=== PATIENT | male | born 1960 | race Caucasian/White ===

== ENCOUNTER 2018-04-17 10:46 | Inpatient (IN) ==
[~2018-04-17 10:46] MED LIST: VERAPAMIL 5 MG/2 ML VIAL ONE
[2018-04-17] MEDS ORDERED: diphenhydrAMINE CAP 25 MG CAPSULE PO ONE (11:00)
[2018-04-17] MEDS ORDERED: SODIUM CHLORIDE 0.45% 1,000 ML IV SCH (11:00)
[2018-04-17] MEDS ORDERED: DIAZEPAM 5 MG TABLET PO ONE (11:00)
[2018-04-17] MEDS ORDERED: diphenhydrAMINE CAP 25 MG CAPSULE ONE (11:52)
[2018-04-17] MEDS ORDERED: DIAZEPAM 5 MG TABLET ONE (11:52)
[2018-04-17] MEDS ORDERED: ASPIRIN 325 MG TABLET ONE (11:52)
[2018-04-17] MEDS ORDERED: LIDOCAINE 1% 20 ML VIAL ONE (11:56)
[2018-04-17] MEDS ORDERED: HEPARIN/NACL 0.9% 2 UNITS/ML 1,000 ML IV ONE (11:56)
[2018-04-17] MEDS ORDERED: ASPIRIN 325 MG TABLET PO ONE (11:58)
[2018-04-17] MEDS ORDERED: NITROGLYCERIN DRIP 50 MG/250 ML BOTTLE IV ONE (12:17)
[2018-04-17] MEDS ORDERED: MIDAZOLAM 2 MG/2 ML VIAL ONE ×2 (12:17→12:32)
[2018-04-17] MEDS ORDERED: fentaNYL 100 MCG/2 ML VIAL ONE (12:17)
[2018-04-17] MEDS ORDERED: HEPARIN 5,000 UNIT/1 ML VIAL ONE (12:30)
[2018-04-17] MEDS ORDERED: diphenhydrAMINE 50 MG/1 ML VIAL ONE (12:32)
[2018-04-17] MEDS ORDERED: ONDANSETRON 4 MG/2 ML VIAL IV PRN (12:57)
[2018-04-17] MEDS ORDERED: ZALEPLON 5 MG CAPSULE PO PRN (12:57)
[2018-04-17] MEDS ORDERED: DOCUSATE SODIUM 100 MG CAPSULE PO PRN (12:57)
[2018-04-17] MEDS ORDERED: ACETAMINOPHEN 325 MG TABLET PO PRN (12:57)
[2018-04-17] MEDS ORDERED: hydrALAZINE 25 MG TABLET PO ONE (23:00)
[2018-04-18 06:09] LABS: Basophils # 0.1 10*3/uL (0.0-0.2); Eosinophils # 0.5 10*3/uL (0.0-0.87); Eosinophils % 5.9 % (0.00-10.9); Hematocrit 41.7 VOL% (42.0-52.0); Hemoglobin 14.8 GM/DL (14.0-18.0); Immature Granulocytes Absolute 0.09 #; Lymphocytes # 2.3 10*3/uL (1.4-4.0); Mean Corpuscular HGB Conc 35.5 GM/DL (32-36); Mean Corpuscular Hemoglobin 33 PG (27-34); Mean Corpuscular Volume 92.9 FL (87-102); Mean Platelet Volume 12.1 FL (9.6-12.0); Monocytes % 11.9 % (1.7-12.7); Neutrophils # 4.8 10*3/uL (1.4-7.4); Neutrophils % 54.2 % (38.7-73.9); Platelet Count 181 T/CUMM (130-400); Red Blood Count 4.49 MC/CUMM (3.8-5.5); Red Cell Distribution Width 13.5 % (9.3-17.3); White Blood Count 8.8 T/CUMM (4-12)
[2018-04-18 06:28] LABS: Calcium 8.8 MG/DL (8.5-10.1); Osmolality,Calculated 276.7 MOS/KG (273-304); Potassium 3.7 MMOL/L (3.5-5.1); Risk Ratio 3.84; Thyroid Stimulating Hormone 1.86 uIU/ml (0.358-3.74); VLDL CHOLESTEROL 54.8 MG/DL
[2018-04-18] MEDS ORDERED: ATORVASTATIN 20 MG TABLET PO SCH (09:00)
[2018-04-18] MEDS ORDERED: LISINOPRIL/HCTZ 20-12.5 MG TABLET PO SCH (09:00)
[2018-04-18] MEDS: CARVEDILOL 3.125 MG TABLET PO SCH ×2 (09:39→16:37)
[2018-04-18] MEDS: LISINOPRIL 20 MG TABLET PO SCH (09:39)
[2018-04-18] MEDS: PANTOPRAZOLE 40 MG TABLET PO SCH (09:39)
[2018-04-18] MEDS: ASPIRIN EC 81 MG TABLET PO SCH (09:39)
[2018-04-18] MEDS: ATORVASTATIN 80 MG TABLET PO SCH (09:39)
[2018-04-18] MEDS: hydrALAZINE 20 MG/1 ML VIAL IV PRN (18:12)
[2018-04-19 06:02] LABS: Basophils # 0.1 10*3/uL (0.0-0.2); Basophils % 0.9 % (0.0-0.8); Eosinophils # 0.5 10*3/uL (0.0-0.87); Eosinophils % 6.4 % (0.00-10.9); Hemoglobin 15.4 GM/DL (14.0-18.0); Immature Granulocytes % 0.9 %; Immature Granulocytes Absolute 0.07 #; Lymphocytes # 2.5 10*3/uL (1.4-4.0); Lymphocytes % 30.3 % (21.2-54.2); Mean Corpuscular HGB Conc 34.2 GM/DL (32-36); Mean Corpuscular Hemoglobin 33 PG (27-34); Mean Corpuscular Volume 94.9 FL (87-102); Mean Platelet Volume 12.2 FL (9.6-12.0); Monocytes # 0.9 10*3/uL (0.11-0.8); Monocytes % 11.5 % (1.7-12.7); Neutrophils # 4.1 10*3/uL (1.4-7.4); Platelet Count 191 T/CUMM (130-400); Red Blood Count 4.74 MC/CUMM (3.8-5.5); Red Cell Distribution Width 13.6 % (9.3-17.3); White Blood Count 8.1 T/CUMM (4-12)
[2018-04-19 06:24] LABS: Calcium 9.4 MG/DL (8.5-10.1); Osmolality,Calculated 282.3 MOS/KG (273-304); Potassium 3.8 MMOL/L (3.5-5.1)
[2018-04-19] MEDS: ATORVASTATIN 80 MG TABLET PO SCH (09:20)
[2018-04-19] MEDS: LISINOPRIL 20 MG TABLET PO SCH (09:20)
[2018-04-19] MEDS: ASPIRIN EC 81 MG TABLET PO SCH (09:20)
[2018-04-19] MEDS: PANTOPRAZOLE 40 MG TABLET PO SCH (09:20)
[2018-04-19] MEDS: CARVEDILOL 3.125 MG TABLET PO SCH ×2 (09:20→16:07)
[2018-04-19] MEDS: amLODIPine 5 MG TABLET PO SCH (18:25)
[2018-04-20] MEDS: amLODIPine 5 MG TABLET PO SCH (08:36)
[2018-04-20] MEDS: ASPIRIN EC 81 MG TABLET PO SCH (08:36)
[2018-04-20] MEDS: CARVEDILOL 3.125 MG TABLET PO SCH ×2 (08:36→16:30)
[2018-04-20] MEDS: LISINOPRIL 20 MG TABLET PO SCH (08:36)
[2018-04-20] MEDS: ATORVASTATIN 80 MG TABLET PO SCH (08:37)
[2018-04-20] MEDS: PANTOPRAZOLE 40 MG TABLET PO SCH (08:37)
[2018-04-20] MEDS: amLODIPine 10 MG TABLET PO SCH (09:43)
[2018-04-20] MEDS: hydrALAZINE 20 MG/1 ML VIAL IV PRN (11:40)
[2018-04-20] MEDS: NAPROXEN 500 MG TABLET PO PRN (16:59)
[2018-04-21] MEDS: PANTOPRAZOLE 40 MG TABLET PO SCH (09:34)
[2018-04-21] MEDS: ATORVASTATIN 80 MG TABLET PO SCH (09:34)
[2018-04-21] MEDS: LISINOPRIL 20 MG TABLET PO SCH (09:34)
[2018-04-21] MEDS: CARVEDILOL 3.125 MG TABLET PO SCH ×2 (09:34→16:25)
[2018-04-21] MEDS: NAPROXEN 500 MG TABLET PO PRN (09:34)
[2018-04-21] MEDS: ASPIRIN EC 81 MG TABLET PO SCH (09:35)
[2018-04-21] MEDS: amLODIPine 10 MG TABLET PO SCH (09:35)
[2018-04-21] MEDS ORDERED: CEFUROXIME INJ 1,500 MG in SYRINGE 1 EACH IV ONE (12:48)
[2018-04-21] MEDS ORDERED: SODIUM CHLORIDE 0.9% 1,000 ML IV SCH (13:00)
[2018-04-21] MEDS: CHLORHEXIDINE 4% SOLN 118 ML BOTTLE TOP SCH ×2 (15:18→20:44)
[2018-04-22] MEDS: CHLORHEXIDINE 0.12% ORAL RINSE 60 ML BOTTLE SWISH/SPIT SCH ×3 (03:16→09:19)
[2018-04-22] MEDS ORDERED: PAPAVERINE 60 MG/2 ML VIAL ONE (05:25)
[2018-04-22] MEDS ORDERED: VANCOMYCIN 1,000 MG VIAL ONE (05:26)
[2018-04-22] MEDS ORDERED: TISSUE ADHESIVE 1 EACH APPLICATOR TOP ONE (05:26)
[2018-04-22] MEDS: CHLORHEXIDINE 4% SOLN 118 ML BOTTLE TOP SCH (07:40)
[2018-04-22] MEDS: CARVEDILOL 3.125 MG TABLET PO SCH (09:16)
[2018-04-22] MEDS: NAPROXEN 500 MG TABLET PO PRN (09:16)
[2018-04-22] MEDS: amLODIPine 10 MG TABLET PO SCH (09:17)
[2018-04-22] MEDS: LISINOPRIL 20 MG TABLET PO SCH (09:17)
[2018-04-22] MEDS: PANTOPRAZOLE 40 MG TABLET PO SCH (09:17)
[2018-04-22] MEDS: ATORVASTATIN 80 MG TABLET PO SCH (09:17)
[2018-04-22] MEDS: ASPIRIN EC 81 MG TABLET PO SCH (09:17)
[2018-04-22] MEDS ORDERED: DIAZEPAM 5 MG TABLET ONE (10:21)
[2018-04-22] MEDS ORDERED: FAMOTIDINE 20 MG TABLET ONE (10:22)
[2018-04-22] MEDS ORDERED: FAMOTIDINE 20 MG TABLET PO ONE ×2 (10:30→15:18)
[2018-04-22] MEDS ORDERED: DIAZEPAM 5 MG TABLET PO ONE ×2 (10:30→15:18)
[2018-04-22] MEDS ORDERED: CEFUROXIME INJ 1,500 MG in SYRINGE 1 EACH IV ONE (10:30)
[2018-04-22] MEDS ORDERED: DEXMEDETOMIDINE 200 MCG/2 ML VIAL IV ONE (11:07)
[2018-04-22 12:27] LABS: ABG Base Excess -2.9 MMOL/L (-2.5-2.5); ABG Oxygen Saturation 99.4 % (95-100); ABG PCO2 41.3 MM HG (35-48); ABG PH 7.348 (7.35-7.45); ABG TCO2 19.4 MMOL/L (23-27); Glucose Heart Surgery 105 MG/DL (74-106); Hematocrit Heart Surgery 45.7 PERCENT (42-52); Hemoglobin Heart Surgery 14.9 G/DL (14.0-18.0); Ionized Calcium Arterial 1.27 MMOL/L (1.21-1.46); PCO2 Patient Temp Arterial 41.3 MMHG; PH Patient Temp Arterial 7.348; Patient Temperature 37 CELCIUS; Potassium Heart/CVR 3.9 MMOL/L (3.5-5.1); Sodium Heart/CVR 139 MMOL/L (135-145)
[2018-04-22 13:20] LABS: Apearance,Urine CLOUDY (Clear); Bilirubin,Urine Negative (Negative); Blood, Urine Negative (Negative); Glucose,Urine (UA) Negative (Negative); Ketones,Urine Negative (Negative); Mucus,Urine Moderate /LPF (Occasional); Nitrite,Urine Negative (Negative); Protein,Urine 30 MG/DL; RBC,Urine 6 /HPF (0-4); Sperm,Urine Many /HPF (Negative); Urine Color Amber (Yellow); Urine Specific Gravity 1.028 (1.001-1.035); Urine Urobilinogen < 2.0 EU/DL (0.2-1.0); WBC,Urine 7 /HPF (0-6)
[2018-04-22] MEDS ORDERED: LIDOCAINE 1% 5 ML VIAL ONE (13:46)
[2018-04-22] MEDS ORDERED: CALCIUM CHLORIDE 1,000 MG/10 ML VIAL IV ONE (13:46)
[2018-04-22] MEDS ORDERED: SUFentanil 250 MCG/5 ML AMP ONE (13:46)
[2018-04-22] MEDS ORDERED: NITROGLYCERIN DRIP 50 MG/250 ML BOTTLE IV ONE (13:47)
[2018-04-22] MEDS ORDERED: PHENYLEPHRINE 10 MG/1 ML VIAL IV ONE (13:47)
[2018-04-22] MEDS ORDERED: MIDAZOLAM 10 MG/2 ML VIAL ONE (13:47)
[2018-04-22] MEDS ORDERED: TRANEXAMIC ACID 1,000 MG/10 ML VIAL ONE ×2 (13:47→17:08)
[2018-04-22] MEDS ORDERED: LACTATED RINGERS 1,000 ML IV ONE (13:47)
[2018-04-22] MEDS ORDERED: SODIUM CHLORIDE 0.9% 500 ML IV ONE (13:47)
[2018-04-22] MEDS ORDERED: VECURONIUM 10 MG VIAL IV ONE (13:47)
[2018-04-22] MEDS ORDERED: SODIUM CHLORIDE 0.9% 1,000 ML IV ONE ×2 (13:47→17:08)
[2018-04-22] MEDS ORDERED: HEPARIN/NACL 0.9% 2 UNITS/ML 500 ML IV ONE (13:48)
[2018-04-22] MEDS ORDERED: ePHEDrine 50 MG/ML AMP ONE (13:48)
[2018-04-22 14:03] LABS: Hematocrit Heart Surgery 31.7 PERCENT (42-52); Hemoglobin Heart Surgery 10.3 G/DL (14.0-18.0); PCO2 Patient Temp Venous 37.6 MM HG; PH Patient Temp Venous 7.387; PO2 Patient Temp Venous 43.4 MM HG; Potassium Heart/CVR 4.2 MMOL/L (3.5-5.1); VBG HCO3 22.4 MEQ/L (24-28); VBG Oxygen Saturation 79.2 %; VBG PCO2 39.5 MMHG (41-51); VBG PH 7.373; VBG PO2 46.6 MMHG (17-40)
[2018-04-22 14:27] LABS: Hematocrit Heart Surgery 32.4 PERCENT (42-52); Hemoglobin Heart Surgery 10.5 G/DL (14.0-18.0); PCO2 Patient Temp Venous 37.9 MM HG; PH Patient Temp Venous 7.432; PO2 Patient Temp Venous 49.3 MM HG; Potassium Heart/CVR 4.2 MMOL/L (3.5-5.1); VBG Base Excess 1.2 MEQ/L (0-4); VBG HCO3 25.2 MEQ/L (24-28); VBG Oxygen Saturation 84.4 %; VBG PCO2 37.9 MMHG (41-51); VBG PH 7.432; VBG PO2 49.3 MMHG (17-40)
[2018-04-22 15:05] LABS: Glucose Heart Surgery 186 MG/DL (74-106); Hemoglobin Heart Surgery 11.2 G/DL (14.0-18.0); Potassium Heart/CVR 4.4 MMOL/L (3.5-5.1); Sodium Heart/CVR 132 MMOL/L (135-145); VBG Base Excess 0.7 MEQ/L (0-4); VBG HCO3 23.5 MEQ/L (24-28); VBG PCO2 31.9 MMHG (41-51); VBG PH 7.486
[2018-04-22 15:25] LABS: Hematocrit Heart Surgery 33.7 PERCENT (42-52); Hemoglobin Heart Surgery 10.9 G/DL (14.0-18.0); PCO2 Patient Temp Venous 39.5 MM HG; PH Patient Temp Venous 7.411; PO2 Patient Temp Venous 47.5 MM HG; Potassium Heart/CVR 4.2 MMOL/L (3.5-5.1); VBG Base Excess 0.6 MEQ/L (0-4); VBG HCO3 24.6 MEQ/L (24-28); VBG Oxygen Saturation 81.5 %; VBG PCO2 39.5 MMHG (41-51); VBG PH 7.411; VBG PO2 47.5 MMHG (17-40)
[2018-04-22] MEDS ORDERED: THROMBIN TOPICAL (RECOMBINANT) 5,000 UNIT VIAL TOP ONE (15:47)
[2018-04-22 16:01] LABS: ABG Base Excess -0.7 MMOL/L (-2.5-2.5); ABG HCO3 23.8 MMOL/L (20-26); ABG Oxygen Saturation 97.5 % (95-100); ABG PCO2 32.3 MM HG (35-48); ABG PH 7.452 (7.35-7.45); ABG PO2 89.8 MM HG (80-95); ABG TCO2 20.1 MMOL/L (23-27); Glucose Heart Surgery 164 MG/DL (74-106); Hematocrit Heart Surgery 34.5 PERCENT (42-52); Hemoglobin Heart Surgery 11.2 G/DL (14.0-18.0); Ionized Calcium Arterial 1.53 MMOL/L (1.21-1.46); PCO2 Patient Temp Arterial 32.3 MMHG; PH Patient Temp Arterial 7.452; PO2 Patient Temp Arterial 89.8 MM HG; Patient Temperature 37 CELCIUS; Potassium Heart/CVR 3.7 MMOL/L (3.5-5.1); Sodium Heart/CVR 134 MMOL/L (135-145)
[2018-04-22] MEDS ORDERED: PROTAMINE SULFATE 250 MG/25 ML VIAL IV ONE (16:14)
[2018-04-22] MEDS ORDERED: FUROSEMIDE 20 MG/2 ML VIAL ONE (16:14)
[2018-04-22] MEDS ORDERED: HEPARIN 10,000 UNIT/10 ML VIAL ONE (16:14)
[2018-04-22] MEDS ORDERED: MANNITOL 12.5 GM/50 ML VIAL IV ONE (16:14)
[2018-04-22] MEDS ORDERED: DEXTROSE 5% KCL 20 MEQ 20 MEQ/1,000 ML BAG IV ONE (16:14)
[2018-04-22] MEDS ORDERED: SODIUM BICARBONATE 50 MEQ/50 ML SYRINGE IV ONE (16:14)
[2018-04-22] MEDS ORDERED: methylPREDNISolone SOD SUC 1,000 MG/8 ML VIAL ONE (16:14)
[2018-04-22] MEDS ORDERED: MAGNESIUM SULFATE 1 GM/2 ML VIAL ONE (16:14)
[2018-04-22] MEDS ORDERED: ALBUMIN 25% 25 GM/100 ML VIAL IV ONE (16:14)
[2018-04-22 16:19] LABS: ABG Base Excess -1.5 MMOL/L (-2.5-2.5); ABG HCO3 23.1 MMOL/L (20-26); ABG Oxygen Saturation 96.6 % (95-100); ABG PCO2 33.6 MM HG (35-48); ABG PH 7.428 (7.35-7.45); ABG PO2 86.9 MM HG (80-95); ABG TCO2 19.8 MMOL/L (23-27); Glucose Heart Surgery 151 MG/DL (74-106); Hematocrit Heart Surgery 35.5 PERCENT (42-52); Hemoglobin Heart Surgery 11.5 G/DL (14.0-18.0); Ionized Calcium Arterial 1.21 MMOL/L (1.21-1.46); PCO2 Patient Temp Arterial 33.6 MMHG; PH Patient Temp Arterial 7.428; PO2 Patient Temp Arterial 86.9 MM HG; Patient Temperature 37 CELCIUS; Potassium Heart/CVR 3.5 MMOL/L (3.5-5.1); Sodium Heart/CVR 136 MMOL/L (135-145)
[2018-04-22] MEDS ORDERED: PHENYLEPHRINE DRIP 40 MG/250 ML PREMIX IV ONE (16:46)
[2018-04-22] MEDS ORDERED: ALBUMIN 5% 12.5 GM/250 ML VIAL IV ONE (17:06)
[2018-04-22] MEDS ORDERED: EPINEPHrine 1 MG/ML VIAL ONE ×2 (17:09→17:11)
[2018-04-22] MEDS ORDERED: EPINEPHrine 1 MG/10 ML SYRINGE ONE (17:12)
[2018-04-22] MEDS ORDERED: INSULIN REGULAR DRIP 100 ML IV SCH (17:23)
[2018-04-22] MEDS ORDERED: ACETAMINOPHEN 650 MG SUPP RECTAL PRN (17:23)
[2018-04-22] MEDS ORDERED: SODIUM CHLORIDE 0.9% 250 ML IV PRN (17:23)
[2018-04-22] MEDS ORDERED: MAGNESIUM SULF RIDER 2 GM in PREMIX 1 EACH IV PRN (17:23)
[2018-04-22] MEDS ORDERED: MIDAZOLAM 2 MG/2 ML VIAL IV PRN (17:23)
[2018-04-22] MEDS ORDERED: ONDANSETRON 4 MG/2 ML VIAL IV PRN (17:23)
[2018-04-22] MEDS ORDERED: MAGNESIUM SULF RIDER 4 GM in PREMIX 1 EACH IV PRN (17:23)
[2018-04-22] MEDS ORDERED: CALCIUM CHLORIDE 1,000 MG/10 ML SYRINGE IV PRN (17:23)
[2018-04-22] MEDS ORDERED: SODIUM CHLORIDE 0.45% 1,000 ML IV SCH (17:23)
[2018-04-22] MEDS ORDERED: CHLORHEXIDINE 4% SOLN 118 ML BOTTLE TOP PRN (17:23)
[2018-04-22] MEDS ORDERED: DEXTROSE 50% 25 GM/50 ML VIAL IV PRN ×2 (17:23)
[2018-04-22 17:52] LABS: ABG Base Excess -4.3 MMOL/L (-2.5-2.5); ABG HCO3 20.7 MMOL/L (20-26); ABG Oxygen Saturation 98.3 % (95-100); ABG PCO2 37.8 MM HG (35-48); ABG PH 7.357 (7.35-7.45); ABG PO2 163.2 MM HG (80-95); ABG TCO2 21.9 MMOL/L (23-27); Basophils # 0.1 10*3/uL (0.0-0.2); Basophils % 0.4 % (0.0-0.8); Eosinophils # 0.2 10*3/uL (0.0-0.87); Glucose Heart Surgery 145 MG/DL (74-106); Hematocrit 36.4 VOL% (42.0-52.0); Hemoglobin 12.5 GM/DL (14.0-18.0); Hemoglobin Heart Surgery 12.9 G/DL (14.0-18.0); Immature Granulocytes % 1.1 %; Immature Granulocytes Absolute 0.22 #; Lymphocytes # 3.3 10*3/uL (1.4-4.0); Lymphocytes % 16.8 % (21.2-54.2); Mean Corpuscular HGB Conc 34.3 GM/DL (32-36); Mean Corpuscular Hemoglobin 33 PG (27-34); Mean Corpuscular Volume 97.3 FL (87-102); Mean Platelet Volume 11.7 FL (9.6-12.0); Monocytes % 9.9 % (1.7-12.7); Neutrophils % 70.8 % (38.7-73.9); Platelet Count 180 T/CUMM (130-400); Potassium Heart/CVR 3.3 MMOL/L (3.5-5.1); Red Blood Count 3.74 MC/CUMM (3.8-5.5); Red Cell Distribution Width 13.5 % (9.3-17.3); White Blood Count 19.8 T/CUMM (4-12)
[2018-04-22 18:03] LABS: INR 1.2; PT Patient Result 12.5 SECS; Partial Thromboplastin Time 28.1 SECS (0-40)
[2018-04-22 18:13] LABS: Blood Urea Nitrogen 24 MG/DL (7-18); Glucose 143 MG/DL (74-106); Osmolality,Calculated 288.1 MOS/KG (273-304); Potassium 3.4 MMOL/L (3.5-5.1); Sodium 142 MMOL/L (136-145)
[2018-04-22 18:20] LABS: Lactic Acid 3.1 MMOL/L (0.4-2.0)
[2018-04-22] MEDS ORDERED: EPINEPHrine 1 MG/10 ML SYRINGE IV ONE ×2 (18:48→18:54)
[2018-04-22] MEDS: SODIUM CHLORIDE 0.45% 1,000 ML IV SCH (18:51)
[2018-04-22] MEDS: ALBUMIN 5% 12.5 GM in PREMIX 1 EACH IV PRN ×4 (18:51→18:56)
[2018-04-22] MEDS ORDERED: ASPIRIN 325 MG TABLET NG ONE (19:22)
[2018-04-22] MEDS: INSULIN REGULAR 100 UNIT/ML IV PRN (23:12)
[2018-04-22 23:15] LABS: ABG Base Excess -4.1 MMOL/L (-2.5-2.5); ABG Oxygen Saturation 95.6 % (95-100); ABG PH 7.359 (7.35-7.45); ABG PO2 84.7 MM HG (80-95); ABG TCO2 18.7 MMOL/L (23-27); Glucose Heart Surgery 186 MG/DL (74-106); Hematocrit Heart Surgery 35.5 PERCENT (42-52); Hemoglobin Heart Surgery 11.5 G/DL (14.0-18.0); Potassium Heart/CVR 3.5 MMOL/L (3.5-5.1)
[2018-04-23] MEDS: MORPHINE 4 MG/1 ML VIAL IV PRN ×3 (00:24→07:52)
[2018-04-23] MEDS: CEFUROXIME INJ 1,500 MG in SYRINGE 1 EACH IV SCH ×2 (00:28→12:13)
[2018-04-23] MEDS: CHLORHEXIDINE 0.12% ORAL RINSE 60 ML BOTTLE SWISH/SPIT SCH ×3 (00:32→21:32)
[2018-04-23] MEDS: POTASSIUM CHLORIDE RIDER 20 MEQ in PREMIX 1 EACH IV PRN ×2 (00:55→05:17)
[2018-04-23] MEDS: INSULIN REGULAR 100 UNIT/ML IV PRN (01:07)
[2018-04-23] MEDS: POTASSIUM CHLORIDE RIDER 10 MEQ in PREMIX 1 EACH IV PRN ×2 (01:24→05:58)
[2018-04-23] MEDS: MORPHINE 10 MG/1 ML VIAL IV PRN ×5 (03:10→21:38)
[2018-04-23 04:02] LABS: Basophils % 0.1 % (0.0-0.8); Hematocrit 30.2 VOL% (42.0-52.0); Hemoglobin 10.5 GM/DL (14.0-18.0); Immature Granulocytes % 0.8 %; Immature Granulocytes Absolute 0.11 #; Lymphocytes # 0.8 10*3/uL (1.4-4.0); Lymphocytes % 5.7 % (21.2-54.2); Mean Corpuscular HGB Conc 34.8 GM/DL (32-36); Mean Corpuscular Hemoglobin 33 PG (27-34); Mean Corpuscular Volume 95.9 FL (87-102); Mean Platelet Volume 11.6 FL (9.6-12.0); Monocytes # 1.1 10*3/uL (0.11-0.8); Monocytes % 8.2 % (1.7-12.7); Neutrophils # 11.3 10*3/uL (1.4-7.4); Neutrophils % 85.2 % (38.7-73.9); Platelet Count 125 T/CUMM (130-400); Red Blood Count 3.15 MC/CUMM (3.8-5.5); Red Cell Distribution Width 13.5 % (9.3-17.3); White Blood Count 13.2 T/CUMM (4-12)
[2018-04-23 04:27] LABS: Calcium 8.3 MG/DL (8.5-10.1); Potassium 3.6 MMOL/L (3.5-5.1)
[2018-04-23] MEDS ORDERED: hydrALAZINE 20 MG/1 ML VIAL IV PRN (06:58)
[2018-04-23] MEDS ORDERED: METOPROLOL TARTRATE 5 MG/5 ML VIAL IV ONE (07:10)
[2018-04-23] MEDS ORDERED: amLODIPine 10 MG TABLET PO SCH (09:00)
[2018-04-23] MEDS ORDERED: CARVEDILOL 6.25 MG TABLET PO SCH (09:00)
[2018-04-23] MEDS: amLODIPine 5 MG TABLET PO SCH (09:10)
[2018-04-23] MEDS: PANTOPRAZOLE 40 MG VIAL IV SCH (09:11)
[2018-04-23] MEDS: CARVEDILOL 3.125 MG TABLET PO SCH ×2 (09:11→21:32)
[2018-04-23] MEDS: CLOPIDOGREL 75 MG TABLET PO SCH (09:11)
[2018-04-23] MEDS ORDERED: GLUCAGON 1 MG VIAL IM PRN (09:49)
[2018-04-23] MEDS ORDERED: DEXTROSE 50% 25 GM/50 ML VIAL IV PRN (09:49)
[2018-04-23] MEDS: METHYLDOPA 500 MG TABLET PO SCH ×2 (11:01→21:32)
[2018-04-23] MEDS: INSULIN REGULAR 100 UNIT/ML SUBCUT SCH ×3 (12:01→21:31)
[2018-04-23] MEDS ORDERED: ATORVASTATIN 40 MG TABLET PO SCH (16:59)
[2018-04-23] MEDS: FUROSEMIDE 40 MG TABLET PO SCH (18:21)
[2018-04-23] MEDS: ATORVASTATIN 40 MG TABLET PO SCH ×2 (18:21→21:32)
[2018-04-23] MEDS: ASPIRIN EC 325 MG TABLET PO SCH (18:21)
[2018-04-24] MEDS: INSULIN REGULAR 100 UNIT/ML SUBCUT SCH ×6 (00:11→21:01)
[2018-04-24] MEDS: CEFUROXIME INJ 1,500 MG in SYRINGE 1 EACH IV SCH (00:12)
[2018-04-24 05:00] LABS: Basophils % 0.1 % (0.0-0.8); Hematocrit 31.2 VOL% (42.0-52.0); Immature Granulocytes % 1.3 %; Immature Granulocytes Absolute 0.24 #; Lymphocytes # 1.2 10*3/uL (1.4-4.0); Lymphocytes % 6.3 % (21.2-54.2); Mean Corpuscular HGB Conc 35.3 GM/DL (32-36); Mean Corpuscular Hemoglobin 33 PG (27-34); Mean Corpuscular Volume 94.5 FL (87-102); Mean Platelet Volume 12.3 FL (9.6-12.0); Monocytes # 2.3 10*3/uL (0.11-0.8); Monocytes % 12.2 % (1.7-12.7); Neutrophils # 14.8 10*3/uL (1.4-7.4); Neutrophils % 80.1 % (38.7-73.9); Platelet Count 144 T/CUMM (130-400); Red Cell Distribution Width 13.8 % (9.3-17.3); White Blood Count 18.5 T/CUMM (4-12)
[2018-04-24 05:23] LABS: Calcium 8.9 MG/DL (8.5-10.1); Osmolality,Calculated 277.7 MOS/KG (273-304); Potassium 4.2 MMOL/L (3.5-5.1)
[2018-04-24] MEDS: POTASSIUM CHLORIDE RIDER 20 MEQ in PREMIX 1 EACH IV PRN (06:24)
[2018-04-24] MEDS: MORPHINE 10 MG/1 ML VIAL IV PRN (07:53)
[2018-04-24] MEDS: amLODIPine 5 MG TABLET PO SCH (08:15)
[2018-04-24] MEDS: CARVEDILOL 3.125 MG TABLET PO SCH ×2 (08:15→21:42)
[2018-04-24] MEDS: PANTOPRAZOLE 40 MG VIAL IV SCH (08:15)
[2018-04-24] MEDS: FUROSEMIDE 40 MG TABLET PO SCH (08:15)
[2018-04-24] MEDS: ASPIRIN EC 325 MG TABLET PO SCH (08:15)
[2018-04-24] MEDS: CLOPIDOGREL 75 MG TABLET PO SCH (08:15)
[2018-04-24] MEDS ORDERED: ALBUTEROL/IPRATROPIUM 3 ML NEB RESP TX PRN (08:48)
[2018-04-24] MEDS ORDERED: ERGOCALCIFEROL 50,000 UNIT CAPSULE PO SCH (09:00)
[2018-04-24] MEDS: CHLORHEXIDINE 0.12% ORAL RINSE 60 ML BOTTLE SWISH/SPIT SCH ×2 (10:08→21:00)
[2018-04-24] MEDS: METHYLDOPA 500 MG TABLET PO SCH ×2 (10:21→21:42)
[2018-04-24] MEDS: ATORVASTATIN 40 MG TABLET PO SCH (21:00)
[2018-04-24] MEDS: traMADol 50 MG TABLET PO PRN (21:00)
[2018-04-24] MEDS: SODIUM CHLORIDE 0.45% 1,000 ML IV SCH (23:36)
[2018-04-25] MEDS: INSULIN REGULAR 100 UNIT/ML SUBCUT SCH ×6 (02:20→21:06)
[2018-04-25 05:34] LABS: Basophils % 0.2 % (0.0-0.8); Eosinophils % 0.3 % (0.00-10.9); Hematocrit 37.3 VOL% (42.0-52.0); Hemoglobin 13.3 GM/DL (14.0-18.0); Immature Granulocytes % 1.3 %; Immature Granulocytes Absolute 0.17 #; Lymphocytes # 1.8 10*3/uL (1.4-4.0); Lymphocytes % 13.6 % (21.2-54.2); Mean Corpuscular HGB Conc 35.7 GM/DL (32-36); Mean Corpuscular Hemoglobin 34 PG (27-34); Mean Platelet Volume 12.9 FL (9.6-12.0); Monocytes # 1.9 10*3/uL (0.11-0.8); Monocytes % 14.6 % (1.7-12.7); Platelet Count 152 T/CUMM (130-400); Red Blood Count 3.97 MC/CUMM (3.8-5.5); Red Cell Distribution Width 13.4 % (9.3-17.3); White Blood Count 12.9 T/CUMM (4-12)
[2018-04-25 06:04] LABS: Calcium 8.9 MG/DL (8.5-10.1); Potassium 4.1 MMOL/L (3.5-5.1)
[2018-04-25] MEDS: METHYLDOPA 500 MG TABLET PO SCH ×2 (10:18→21:05)
[2018-04-25] MEDS: ASPIRIN EC 325 MG TABLET PO SCH (10:18)
[2018-04-25] MEDS: CARVEDILOL 3.125 MG TABLET PO SCH ×2 (10:18→21:05)
[2018-04-25] MEDS: FUROSEMIDE 40 MG TABLET PO SCH (10:18)
[2018-04-25] MEDS: CHLORHEXIDINE 0.12% ORAL RINSE 60 ML BOTTLE SWISH/SPIT SCH ×2 (10:19→21:06)
[2018-04-25] MEDS: amLODIPine 5 MG TABLET PO SCH (10:19)
[2018-04-25] MEDS: CLOPIDOGREL 75 MG TABLET PO SCH (10:19)
[2018-04-25] MEDS: PANTOPRAZOLE 40 MG VIAL IV SCH (10:21)
[2018-04-25] MEDS ORDERED: MAGNESIUM HYDROXIDE SUSP 30 ML UDCUP PO PRN (18:29)
[2018-04-25] MEDS: traMADol 50 MG TABLET PO PRN (18:36)
[2018-04-25] MEDS: ATORVASTATIN 40 MG TABLET PO SCH (21:05)
[2018-04-25] MEDS: DOCUSATE SODIUM 100 MG CAPSULE PO SCH (21:06)
[2018-04-25] MEDS ORDERED: ACETAMINOPHEN 325 MG TABLET PO PRN (21:09)
[2018-04-25] MEDS ORDERED: ACETAMINOPHEN 500 MG TABLET ONE (21:12)
[2018-04-26] MEDS: INSULIN REGULAR 100 UNIT/ML SUBCUT SCH ×3 (00:32→16:02)
[2018-04-26 06:07] LABS: Calcium 9.2 MG/DL (8.5-10.1); Osmolality,Calculated 276.8 MOS/KG (273-304); Potassium 3.9 MMOL/L (3.5-5.1)
[2018-04-26 08:07] LABS: Basophils # 0.1 10*3/uL (0.0-0.2); Basophils % 0.5 % (0.0-0.8); Eosinophils # 0.3 10*3/uL (0.0-0.87); Eosinophils % 2.3 % (0.00-10.9); Immature Granulocytes % 2.9 %; Immature Granulocytes Absolute 0.39 #; Lymphocytes # 2.3 10*3/uL (1.4-4.0); Lymphocytes % 17.3 % (21.2-54.2); Mean Corpuscular HGB Conc 35.5 GM/DL (32-36); Mean Corpuscular Hemoglobin 33 PG (27-34); Mean Corpuscular Volume 93.4 FL (87-102); Mean Platelet Volume 12.3 FL (9.6-12.0); Monocytes # 2.1 10*3/uL (0.11-0.8); Monocytes % 16.1 % (1.7-12.7); Neutrophils # 8.1 10*3/uL (1.4-7.4); Neutrophils % 60.9 % (38.7-73.9); Red Blood Count 3.32 MC/CUMM (3.8-5.5); Red Cell Distribution Width 13.6 % (9.3-17.3); White Blood Count 13.3 T/CUMM (4-12)
[2018-04-26 08:30] LABS: Platelet Count 203 T/CUMM (130-400)
[2018-04-26 08:40] LABS: Microcytosis 1+; Ovalocytes Slight
[2018-04-26 08:41] LABS: Platelet Estimate Normal
[2018-04-26] MEDS: FUROSEMIDE 40 MG TABLET PO SCH (09:13)
[2018-04-26] MEDS: CLOPIDOGREL 75 MG TABLET PO SCH (09:14)
[2018-04-26] MEDS: METHYLDOPA 500 MG TABLET PO SCH (09:14)
[2018-04-26] MEDS: PANTOPRAZOLE 40 MG VIAL IV SCH (09:14)
[2018-04-26] MEDS: CARVEDILOL 3.125 MG TABLET PO SCH (09:14)
[2018-04-26] MEDS: amLODIPine 5 MG TABLET PO SCH (09:14)
[2018-04-26] MEDS: DOCUSATE SODIUM 100 MG CAPSULE PO SCH (09:14)
[2018-04-26] MEDS: ASPIRIN EC 325 MG TABLET PO SCH (09:14)
[2018-04-26] MEDS: CHLORHEXIDINE 0.12% ORAL RINSE 60 ML BOTTLE SWISH/SPIT SCH (09:15)
[2018-04-26] MEDS: traMADol 50 MG TABLET PO PRN (12:23)
[2018-04-26] MEDS ORDERED: SODIUM PHOSPHATE ENEMA 133 ML BOTTLE RECTAL PRN (14:01)
[2018-04-26] MEDS ORDERED: BISACODYL 5 MG TABLET PO PRN (14:32)
[2018-04-26 15:54] VITALS: BP 128/64
== END 2018-04-26 17:31 | disposition home or self-care (01) | DRG 234 ==
LOC: N.CL 10:46 → N.TELES 17:07 → N.CVR 04-22 13:52 → N.ICU 04-23 18:26 → N.TELES 04-24 12:40
PROVIDERS: ADMIT Internal Medicine Cardiovascular Disease; ATTEND Internal Medicine Cardiovascular Disease

== ENCOUNTER 2018-06-15 11:40 | Inpatient (IN) ==
[2018-06-15] MEDS ORDERED: SODIUM CHLORIDE 0.9% 500 ML IV STA (12:31)
[2018-06-15 12:46] LABS: Basophils # 0.1 10*3/uL (0.0-0.2); Basophils % 0.5 % (0.0-0.8); Eosinophils # 0.4 10*3/uL (0.0-0.87); Eosinophils % 3.6 % (0.00-10.9); Hematocrit 38.3 VOL% (42.0-52.0); Hemoglobin 13.2 GM/DL (14.0-18.0); Immature Granulocytes % 0.6 %; Immature Granulocytes Absolute 0.07 #; Lymphocytes # 1.8 10*3/uL (1.4-4.0); Lymphocytes % 14.8 % (21.2-54.2); Mean Corpuscular HGB Conc 34.5 GM/DL (32-36); Mean Corpuscular Hemoglobin 31 PG (27-34); Mean Corpuscular Volume 90.3 FL (87-102); Mean Platelet Volume 11.7 FL (9.6-12.0); Monocytes # 0.7 10*3/uL (0.11-0.8); Monocytes % 5.8 % (1.7-12.7); Neutrophils # 8.8 10*3/uL (1.4-7.4); Neutrophils % 74.7 % (38.7-73.9); Platelet Count 249 T/CUMM (130-400); Red Blood Count 4.24 MC/CUMM (3.8-5.5); Red Cell Distribution Width 15.4 % (9.3-17.3); White Blood Count 11.8 T/CUMM (4-12)
[2018-06-15 13:03] LABS: Alanine Aminotransferase 28 U/L (16-61); Albumin 3.8 G/DL (3.4-5.0); Alkaline Phosphatase 40 U/L (45-117); Aspartate Amino Transferase 21 U/L (0-37); Blood Urea Nitrogen 10 MG/DL (7-18); Calcium 9.4 MG/DL (8.5-10.1); Glucose 139 MG/DL (74-106); Osmolality,Calculated 277.5 MOS/KG (273-304); Potassium 2.8 MMOL/L (3.5-5.1); Sodium 139 MMOL/L (136-145); Total Protein 7.7 G/DL (6.4-8.3)
[2018-06-15] MEDS ORDERED: POTASSIUM CHLORIDE RIDER 20 MEQ in PREMIX 1 EACH IV STA (13:17)
[2018-06-15] MEDS ORDERED: POTASSIUM CHLORIDE 20 MEQ TABLET PO STA (13:17)
[2018-06-15] MEDS ORDERED: POTASSIUM CHLORIDE RIDER 200 ML IV ONE (14:08)
[2018-06-15] MEDS ORDERED: ACETAMINOPHEN 325 MG TABLET PO PRN (14:20)
[2018-06-15] MEDS ORDERED: traMADol 50 MG TABLET PO PRN (14:20)
[2018-06-15] MEDS ORDERED: MAGNESIUM HYDROXIDE SUSP 30 ML UDCUP PO PRN (14:20)
[2018-06-15] MEDS ORDERED: ONDANSETRON 4 MG/2 ML VIAL IV PRN (14:46)
[2018-06-15] MEDS ORDERED: hydrALAZINE 20 MG/1 ML VIAL IV PRN (14:49)
[2018-06-15] MEDS: POTASSIUM CHLORIDE 20 MEQ TABLET PO SCH ×3 (16:11→22:04)
[2018-06-15] MEDS ORDERED: ATORVASTATIN 80 MG TABLET PO SCH (21:00)
[2018-06-15] MEDS ORDERED: ENOXAPARIN 40 MG/0.4 ML SYRINGE SUBCUT SCH (21:00)
[2018-06-15] MEDS: LOSARTAN 50 MG TABLET PO SCH (21:20)
[2018-06-15] MEDS: DOCUSATE SODIUM 100 MG CAPSULE PO SCH (21:20)
[2018-06-15] MEDS: CARVEDILOL 3.125 MG TABLET PO SCH (21:21)
[2018-06-16] MEDS: POTASSIUM CHLORIDE 20 MEQ TABLET PO SCH (02:59)
[2018-06-16 03:56] LABS: Basophils # 0.1 10*3/uL (0.0-0.2); Basophils % 0.7 % (0.0-0.8); Eosinophils # 0.5 10*3/uL (0.0-0.87); Eosinophils % 5.6 % (0.00-10.9); Hematocrit 33.8 VOL% (42.0-52.0); Hemoglobin 11.4 GM/DL (14.0-18.0); Immature Granulocytes % 0.7 %; Immature Granulocytes Absolute 0.06 #; Lymphocytes # 2.5 10*3/uL (1.4-4.0); Lymphocytes % 27.4 % (21.2-54.2); Mean Corpuscular HGB Conc 33.7 GM/DL (32-36); Mean Corpuscular Hemoglobin 30 PG (27-34); Mean Corpuscular Volume 89.7 FL (87-102); Mean Platelet Volume 11.6 FL (9.6-12.0); Monocytes # 1.1 10*3/uL (0.11-0.8); Monocytes % 12.5 % (1.7-12.7); Neutrophils # 4.8 10*3/uL (1.4-7.4); Neutrophils % 53.1 % (38.7-73.9); Platelet Count 196 T/CUMM (130-400); Red Blood Count 3.77 MC/CUMM (3.8-5.5); Red Cell Distribution Width 15.6 % (9.3-17.3); White Blood Count 9.1 T/CUMM (4-12)
[2018-06-16 04:30] LABS: Calcium 8.8 MG/DL (8.5-10.1); Osmolality,Calculated 283.1 MOS/KG (273-304); Potassium 3.4 MMOL/L (3.5-5.1)
[2018-06-16] MEDS: POTASSIUM CHLORIDE 20 MEQ TABLET PO PRN ×2 (05:34→12:03)
[2018-06-16] MEDS ORDERED: ASPIRIN EC 325 MG TABLET PO SCH (09:00)
[2018-06-16] MEDS ORDERED: CLOPIDOGREL 75 MG TABLET PO SCH (09:00)
[2018-06-16] MEDS: DOCUSATE SODIUM 100 MG CAPSULE PO SCH (09:10)
[2018-06-16] MEDS: FUROSEMIDE 40 MG TABLET PO SCH (09:10)
[2018-06-16] MEDS: CARVEDILOL 3.125 MG TABLET PO SCH (09:10)
[2018-06-16] MEDS: LOSARTAN 50 MG TABLET PO SCH (09:11)
[2018-06-16] MEDS ORDERED: LOSARTAN 50 MG TABLET PO SCH (09:15)
[2018-06-16 16:48] VITALS: BP 167/91
[2018-06-16] MEDS ORDERED: FAMOTIDINE 20 MG TABLET PO SCH (21:00)
[2018-06-22] MEDS ORDERED: ERGOCALCIFEROL 50,000 UNIT CAPSULE PO SCH (09:00)
== END 2018-06-16 16:48 | disposition home or self-care (01) | DRG 312 ==
LOC: N.ED 11:40 → N.EDINP 13:15 → SUATTDRO 14:18 → N.EDINP 14:18 → N.TELES 16:02
PROVIDERS: ADMIT Hospitalist; ATTEND Internal Medicine